=== PATIENT | male | born 1975 | race Caucasian/White ===

== ENCOUNTER 2024-01-28 08:09 | Outpatient (AMB) | payer BC, SELFPAY ==
--- NOTE | 2024-01-28 08:12 | A.OFFVIS_ITS ---
Vital Signs 01/28/24 08:20 Height 5 ft 9 in Weight 201 lb 8.04 oz BMI 29.8 BP 140/100 H Blood Pressure Location Lt brachial Position Sitting Pulse 67 Pulse Source Pulse Oximeter Pulse Oximetry (%) 96 Oxygen Delivery Method Room Air Intake Visit Reasons: PSA/ATC MED REC RECIEVED Intake Note: Patient presents for PSA. Left hand trigger finger is about the same it always been. Lower back and neck pain. Allergies Chocolate Allergy (Mild, Verified 01/28/24 08:15) Unknown Shellfish Allergy (Mild, Uncoded 01/21/24 15:13) Unknown Medication List - Last Reconciled 01/28/24 by Vijay To MD adalimumab (Humira(CF) Pen) 40 mg (0.4 mL) subcut Q2W ascorbic acid (vitamin C) 1 g PO Q6H naproxen sodium (Aleve) 220 mg PO BID PRN sildenafil 50 mg PO DAILY PRN HPI HPI PSA/ATC MED REC RECIEVED: Details: He has had some breaththrough PsO lesions coin size. Drinks 3 beers on Saturday. Left 3rd trigger finger is still active. Wore splint for a month. Recently had neck pain for 3 weeks where he could not rotate his neck. Pain has subsided over time. He has chronic lower back pain that he has been ex periencing for a year. Back pain does not affect his function. He continues to workout. [facility] Surgical History (Updated 01/28/24 @ 08:19 by VINAYAK Zelaya) History of knee surgery Family History (Updated 01/28/24 @ 08:19 by VINAYAK Zelaya) Father A-fib Social History (Updated 01/28/24 @ 08:20 by VINAYAK Zelaya) Household Members: None Housing: House Alcohol intake: current Comment: OCC Patient Tobacco Use Status: Never used Tobacco Review of Systems Const All systems reviewed & are unremarkable except as noted in HPI and below Physical Exam Vital Signs: Last Vital Signs Pulse 67 01/28/24 08:20 BP 140/100 H 01/28/24 08:20 Pulse Ox 96 01/28/24 08:20 Oxygen Delivery Method Room Air 01/28/24 08:20 BMI result Body Mass Index 29.8 Const Other: General: Comfortable CVS: RRR Respiratory: clear to auscultation bilaterally. Good respiratory effort Skin: No lesions seen MSK: Tender MCPs in right hand. No tenderness of any other joint. He has good range of motion of upper extremity lower extremity. He has tenderness of lower lumbar spinous process and paraspinal muscles. Good range of motion of cervical spine and good lumbar flexion. Assessment & Plan Assessment & Plan (1) Psoriatic arthritis: Comment: Psoriatic arthritis is controlled on Humira. Recently had breakthrough psoriasis. He has intermittent shoulder pain, which I suspect is from chronic rotator cuff tendinopathy. 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 We will obtain L-spine x-ray for further evaluation. Code(s): M54.50 - Low back pain, unspecified Category: Medical Qualifiers: Chronicity: chronic Back pain laterality: midline Sciatica presence: without sciatica Qualified Code(s): M54.50 - Low back pain, unspecified; G89.29 - Other chronic pain Plan: L-spine x-ray ordered I have asked him to start a stretching routine along with his workouts Can consider PT evaluation if needed in the future Return to clinic in 3 months (4) Neck pain: Comment: Acute onset neck pain with limited mobility for 3 weeks, resolved. Unclear etiology. We will obtain C-spine x-ray to evaluate for joint pathology including axial inflammatory arthritis. Code(s): M54.2 - Cervicalgia Category: Medical Plan: C-spine x-ray ordered Orders: Orders Alanine Aminotransferase 2 Months L40.50 - Arthropathic psoriasis, unspecified, Z79.899 - Other long-term (current) drug therapy Aspartate Amino Transferase 2 Months L40.50 - Arthropathic psoriasis, unspecified, Z79.899 - Other long-term (current) drug therapy Erythrocyte Sedimentation Rate 2 Months L40.50 - Arthropathic psoriasis, unspecified, Z79.899 - Other long-term (current) drug therapy Creatinine 2 Months L40.50 - Arthropathic psoriasis, unspecified, Z79.899 - Other termite exterminator helper (current) drug therapy Hepatitis B,C Profile 2 Months L40.50 - Arthropathic psoriasis, unspecified, Z79.899 - Other termite exterminator helper (current) drug therapy XR cervical spine 3V Today M54.2 - Cervicalgia, M54.50 - Low back pain, unspecified C Reactive Protein 2 Months L40.50 - Arthropathic psoriasis, unspecified, Z79.899 - Other termite exterminator helper (current) drug therapy Complete Blood Count Auto Diff 2 Months L40.50 - Arthropathic psoriasis, unspecified, Z79.899 - Other termite exterminator helper (current) drug therapy T Spot TB 2 Months L40.50 - Arthropathic psoriasis, unspecified, Z79.899 - Other termite exterminator helper (current) drug therapy XR lumbar spine 2-3V Today M54.50 - Low back pain, unspecified Medications: New adalimumab (Humira(CF) Pen) Inject SC every other week PA needed. Continuity of treatment. 40 mg (0.4 mL) subcut Q2W 2 ea 2RF Coding Level of Care Code Est Pt Level 5 (44644) Complex EM visit Add On G2211 Diagnoses Psoriatic arthritis L40.50 Other long-term (current) drug therapy Z79.899 Chronic midline low back pain without sciatica M54.50; G89.29 Chronicity: chronic Back pain laterality: midline Sciatica presence: without sciatica Neck pain M54.2
[2024-01-28 08:20] VITALS: BP 140/100; PULSE 67; O2SAT 96; BMI 29.8
== END 2024-01-28 08:50 | disposition home or self-care (01) ==
PROVIDERS: PCP Internal Medicine; Visit Provider Internal Medicine Rheumatology
DX: L40.50 Arthropathic psoriasis, unspecified (principal); Z79.899 Other long term (current) drug therapy; M54.50 Low back pain, unspecified; G89.29 Other chronic pain; M54.2 Cervicalgia
CPT/HCPCS: 99214

== ENCOUNTER 2024-01-28 08:09 | Outpatient (REF) | payer BC, SELFPAY | END 2024-01-28 08:10 | disposition home or self-care (01) | LOC: HO.XRAY 08:09 | PROVIDERS: PCP Internal Medicine; Visit Provider Internal Medicine Rheumatology | DX: M54.50 Low back pain, unspecified (principal); M54.2 Cervicalgia | CPT/HCPCS: 72040; 72100 ==

== ENCOUNTER 2024-03-31 09:10 | Outpatient (REF) | payer BC, SELFPAY ==
[2024-03-31 11:17] LABS: MANUAL DIFF FLAG NO
[2024-03-31 11:25] LABS: Basophils Percent Auto 0.4 % (0-2); Eosinophils Absolute Auto 0.2 X10*3/uL (0.0-0.4); Eosinophils Percent Auto 2.7 % (0-4); Hematocrit 44.9 % (42.0-52.0); Hemoglobin 15.4 g/dl (14.0-18.0); Imm Gran Abs Auto 0.03 X10*3/uL (0.00-0.03); Imm Gran Pct Auto 0.4 % (0.0-0.4); Lymphocytes Absolute Auto 2.2 X10*3/uL (1.2-4.9); Lymphocytes Percent Auto 29.6 % (20-40); Mean Corpuscular HGB Conc 34.3 g/dl (31.0-36.0); Mean Corpuscular Hemoglobin 31.6 pg (27.0-33.0); Mean Platelet Volume 11.2 fL (9.4-12.4); Monocytes Absolute Auto 0.7 X10*3/uL (0.1-1.2); Monocytes Percent Auto 8.9 % (2-11); Neutrophils Absolute Auto 4.4 x10*3/uL (2.0-8.3); Platelet Count 357 X10*3/uL (160-400); Red Blood Count 4.88 X10*6/uL (4.60-5.80); White Blood Count 7.5 X10*3/uL (4.8-10.8)
[2024-03-31 11:48] LABS: Erythrocyte Sedimentation Rate 2 MM/HR (0-15)
[2024-03-31 12:04] LABS: Alanine Aminotransferase 28 U/L (0-40); Aspartate Amino Transferase 21 U/L (5-37); Estimated Glomerular Filt Rate > 60
[2024-03-31 12:27] LABS: HBS Num1 195.51 mIU/mL (0-7.99); HBc Num1 0.12 S/CO (0.00-0.79); HBsAGNum1 0.37 S/CO (0.00-0.99); Hepatitis B Core Antibody Nonreactive (Nonreactive); Hepatitis B Surface Antigen Negative (Negative); ~HepC Num1 0.11 S/CO (0.00-0.79); ~Hepatitis B Surface Antibody REACTIVE (Nonreactive); ~Hepatitis C Antibody Nonreactive (Nonreactive)
[2024-04-03 05:18] LABS: TS Negative Control Passed; TS Panel A 1; TS Panel B 0; TS Positive Control Passed; TSpotTB Negative (Negative)
== END 2024-03-31 09:11 | disposition home or self-care (01) ==
LOC: HO.WFDLDS 09:10
PROVIDERS: Visit Provider Internal Medicine Rheumatology
DX: L40.50 Arthropathic psoriasis, unspecified (principal); Z79.899 Other long term (current) drug therapy
CPT/HCPCS: 36415; 82565; 84450; 84460; 85025; 85652; 86140; 86481; 86704; 86706; 86803; 87340

== ENCOUNTER 2024-04-28 09:43 | Outpatient (AMB) | payer BC, SELFPAY ==
[2024-04-28 09:45] VITALS: BP 140/100; PULSE 79; O2SAT 97; BMI 29.4
--- NOTE | 2024-04-28 09:45 | MHC.OFFVIS ---
Vital Signs 04/28/24 09:45 Height 5 ft 9 in Weight 199 lb 1.239 oz BMI 29.4 BP 140/100 H Blood Pressure Location Lt brachial Position Sitting Pulse 79 Pulse Oximetry (%) 97 Oxygen Delivery Method Room Air Intake Visit Reasons: Follow Up 3mo Professional Benefits Sales Consultant Required: No Accompanied by: Self / Same As Patient Allergies Chocolate Allergy (Mild, Verified 04/28/24 09:45) Unknown Shellfish Allergy (Mild, Uncoded 01/21/24 15:13) Unknown HPI HPI Follow Up 3mo: Details: PsO, nail PsO and PsA is controlled on humira. No recent infections. He had an episode of diverticulitis the day after he took Humira. It resolved in a week. He continues to have intermittent back pain. No recent triggers. He tolerates the pain. He has not been exercising. Previously he used to go to the gym. [facility] Surgical History History of knee surgery Family History Father A-fib Social History Household Members: None Housing: House Alcohol intake: current Comment: OCC Patient Tobacco Use Status: Never used Tobacco Review of Systems Const All systems reviewed & are unremarkable except as noted in HPI and below Physical Exam Vital Signs: Last Vital Signs Pulse 79 04/28/24 09:45 BP 140/100 H 04/28/24 09:45 Pulse Ox 97 04/28/24 09:45 Oxygen Delivery Method Room Air 04/28/24 09:45 BMI result Body Mass Index 29.4 Const Other: General: Comfortable CVS: RRR Respiratory: clear to auscultation bilaterally. Good respiratory effort Skin: No lesions seen MSK: Tender MCPs in right hand. No tenderness of any other joint. He has good range of motion of upper extremity lower extremity. Assessment & Plan Assessment & Plan (1) Psoriatic arthritis: Comment: Psoriatic arthritis and psoriasis is controlled on Humira. He has new hyperpigmented lesions on his legs of unclear etiology Code(s): L40.50 - Arthropathic psoriasis, unspecified Category: Medical Plan: Continue Humira every other week Labs for drug monitoring on high-risk medication up-to-date 03/2024 Dermatology follow-up for new leg lesions Return to clinic in 3 months (2) Lumbar spondylosis: Comment: Intermittent pain in lower back. We discussed x-ray results. 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 We discussed x-ray results in detail. He agreed to PT. Code(s): M47.812 - Spondylosis without myelopathy or radiculopathy, cervical region Category: Medical Plan: PT ordered Orders: Orders PT Evaluation and Treatment Today M47.812 - Spondylosis without myelopathy or radiculopathy, cervical region, M47.816 - Spondylosis without myelopathy or radiculopathy, lumbar region Medications: Refilled adalimumab (Humira(CF) Pen) Inject once every 14 days subcutaneous. Citrate free pen. 40 mg (0.4 mL) subcut Q14D 2 ea 2RF Coding Level of Care Code Est Pt Level 4 (43750) Complex EM visit Add On G2211 Diagnoses Psoriatic arthritis L40.50 Lumbar spondylosis M47.816 Other leather flesher (current) drug therapy Z79.899 Cervical spondylosis M47.812
== END 2024-04-28 10:18 | disposition home or self-care (01) ==
PROVIDERS: PCP Internal Medicine; Visit Provider Internal Medicine Rheumatology
DX: L40.50 Arthropathic psoriasis, unspecified (principal); M47.816 Spondylosis without myelopathy or radiculopathy, lumbar region; Z79.899 Other long term (current) drug therapy; M47.812 Spondylosis without myelopathy or radiculopathy, cervical region
CPT/HCPCS: 99214

== ENCOUNTER 2024-07-30 09:35 | Outpatient (AMB) | payer BC, SELFPAY ==
--- NOTE | 2024-07-30 09:36 | A.OFFVIS_ITS ---
Vital Signs 07/30/24 09:37 Height 5 ft 9 in Weight 205 lb 7.533 oz BMI 30.3 BP 130/90 H Blood Pressure Location Lt brachial Position Sitting Pulse 82 Pulse Source Pulse Oximeter Pulse Oximetry (%) 95 Oxygen Delivery Method Room Air Intake Visit Reasons: 3 Months Intake Note: Patient presents for PSA. Accompanied by: Self / Same As Patient Allergies Chocolate Allergy (Mild, Verified 07/30/24 09:36) Unknown Shellfish Allergy (Mild, Uncoded 01/21/24 15:13) Unknown HPI HPI 3 Months: Details: He had a tick bite on easter and received 12 days doxycycline. No new joint pain or swelling. Feels tired. Rash is progressing. They started before Humira he has noticed since being on Humira they have increased in frequency. Denies pruritus. The lesions appear then turned into bruises. PFSH Surgical History History of knee surgery Family History Father A-fib Social History Household Members: None Housing: House Alcohol intake: current Comment: OCC Patient Tobacco Use Status: Never used Tobacco Physical Exam Vital Signs: Last Vital Signs Pulse 82 07/30/24 09:37 BP 130/90 H 07/30/24 09:37 Pulse Ox 95 07/30/24 09:37 Oxygen Delivery Method Room Air 07/30/24 09:37 BMI result Body Mass Index 30.3 Const Other: General: Comfortable CVS: RRR Respiratory: clear to auscultation bilaterally. Good respiratory effort Skin: He has flat clusters of purpuric lesions with neighboring hyperpigmentation/bruising bilateral shins MSK: No tenderness of any joint. No synovitis. No enthesitis or dactylitis. He has normal range of motion of upper extremity lower extremity. Assessment & Plan Assessment & Plan (1) Psoriatic arthritis: Comment: Psoriatic arthritis and psoriasis is controlled on Humira. He has progression of erythematous clustered lesions that turned into hyperpigmented lesions on bilateral shins of unclear etiology Code(s): L40.50 - Arthropathic psoriasis, unspecified Category: Medical Plan: Continue Humira every other week Labs for disease and drug monitoring on high-risk medication ordered Dermatology follow-up for evaluation and management of lower extremity lesion Return to clinic in 3 months (2) Fatigue: Comment: Chronic Code(s): R53.83 - Other fatigue Category: Medical Qualifiers: Fatigue type: unspecified Qualified Code(s): R53.83 - Other fatigue Plan: TSH ordered (3) Other chcf (current) drug therapy: Code(s): Z79.899 - Other superintendent container terminal (current) drug therapy Category: Medical Plan: See above Orders: Orders Erythrocyte Sedimentation Rate Today Z79.899 - Other superintendent container terminal (current) drug therapy Complete Blood Count Auto Diff Today Z79.60 - detention (current) use of unspecified immunomodulators and immunosuppressants, Z79.899 - Other superintendent container terminal (current) drug therapy C Reactive Protein Today Z79.899 - Other superintendent container terminal (current) drug therapy Alanine Aminotransferase Today Z79.60 - detention (current) use of unspecified immunomodulators and immunosuppressants, Z79.899 - Other chcf (current) drug therapy Aspartate Amino Transferase Today Z79.60 - terminal press operator (current) use of unspecified immunomodulators and immunosuppressants, Z79.899 - Other superintendent container terminal (current) drug therapy Creatinine Today Z79.60 - terminal press operator (current) use of unspecified immunomodulators and immunosuppressants, Z79.899 - Other chcf (current) drug therapy TSH reflex Free T4 Today R53.83 - Other fatigue Coding Level of Care Code Est Pt Level 4 (23498) Complex EM visit Add On G2211 Diagnoses Psoriatic arthritis L40.50 Fatigue, unspecified type R53. Fatigue type: unspecified Other chcf (current) drug therapy Z79.899
[2024-07-30 09:37] VITALS: BP 130/90; PULSE 82; O2SAT 95; BMI 30.3
== END 2024-07-30 10:19 | disposition home or self-care (01) ==
LOC: HO.RHES 09:35
PROVIDERS: PCP Internal Medicine; Visit Provider Internal Medicine Rheumatology
DX: L40.50 Arthropathic psoriasis, unspecified (principal); R53.83 Other fatigue; Z79.899 Other long term (current) drug therapy
CPT/HCPCS: 99214

== ENCOUNTER 2024-07-30 09:35 | Outpatient (REF) | payer BC, SELFPAY ==
[2024-07-30 11:00] LABS: MANUAL DIFF FLAG NO
[2024-07-30 11:27] LABS: Basophils Percent Auto 0.2 % (0-2); Eosinophils Absolute Auto 0.4 X10*3/uL (0.0-0.4); Eosinophils Percent Auto 4.9 % (0-4); Hematocrit 44.5 % (42.0-52.0); Imm Gran Abs Auto 0.06 X10*3/uL (0.00-0.03); Imm Gran Pct Auto 0.7 % (0.0-0.4); Lymphocytes Absolute Auto 1.9 X10*3/uL (1.2-4.9); Lymphocytes Percent Auto 21.3 % (20-40); Mean Corpuscular Hemoglobin 32.6 pg (27.0-33.0); Mean Corpuscular Volume 90.6 fL (80.0-98.0); Mean Platelet Volume 10.9 fL (9.4-12.4); Monocytes Absolute Auto 1.1 X10*3/uL (0.1-1.2); Monocytes Percent Auto 12.9 % (2-11); Neutrophils Absolute Auto 5.3 x10*3/uL (2.0-8.3); Platelet Count 275 X10*3/uL (160-400); Red Blood Count 4.91 X10*6/uL (4.60-5.80); Red Cell Distribution Width 12.4 % (11.0-16.0); White Blood Count 8.8 X10*3/uL (4.8-10.8)
[2024-07-30 12:05] LABS: Erythrocyte Sedimentation Rate 2 MM/HR (0-15)
[2024-07-30 12:15] LABS: Alanine Aminotransferase 48 U/L (0-40); Aspartate Amino Transferase 29 U/L (5-37); C Reactive Protein 0.61 mg/dL (< or = 0.50); Estimated Glomerular Filt Rate > 60
== END 2024-07-30 09:36 | disposition home or self-care (01) ==
LOC: HO.LAB 09:35
PROVIDERS: PCP Internal Medicine; Visit Provider Internal Medicine Rheumatology
DX: L40.50 Arthropathic psoriasis, unspecified (principal); R53.83 Other fatigue; Z79.899 Other long term (current) drug therapy; Z79.60 Long term (current) use of unspecified immunomodulators and immunosuppressants
CPT/HCPCS: 36415; 82565; 84443; 84450; 84460; 85025; 85652; 86140

== ENCOUNTER 2024-10-29 10:38 | Outpatient (AMB) | payer BC, SELFPAY ==
--- OUTSIDE RECORDS SUMMARY | 2016-04-24 01:00 | XMS_ITS | Encounter Summary ---
Author Organization [facility] Address [address] [place] [phone] Phone Care Team Providers Care Senior Animal Trainer Name Role Phone Unavailable Primary Care Provider Unavailabl e Encounter Details Date Type Department Care Team (Late st Contact Info) Description 04/24/2016 Hospital Encounter [facility] [address] [place] [address] Kaleigh Lemos PA [address] [place] [address] [email or web address] Social History Tobacco Use Types Packs/Day Years Used Date Smoking Tobacco: Never Education Answer Date Recorded Are you interested in more education? Not on diamond e 06/29/2022 Are you concerned about learning? Not on file 06/29/2022 No 06/29/2022 No 06/29/2022 Digital Access Answer Date Recorded No 07/30/2022 No 07/30/2022 No 07/30/2022 Reliable internet access at home? Not on file 07/30/2022 Device with a working camera? Not on file Sex and Gender Information Value Date Recorded Sex Assigned at Not on file Legal Sex Male 10:22 AM EDT Gender Identity Not on file Sexual Orientation Not on file documented as of this encounter Plan of Treatment Not on file documented as of this encounter Procedures Procedure Name Priority Date/Time Associated Diagnosis Comments XR UPPER EXTREMITY OUTSIDE (NO INTERPRETATION) Routine 04/24/2016 12:00 AM EST documented in this encounter Results * XR Upper Extremity Outside (No Interpretation) (04/24/2016 12:00 AM EST) Narrative [facility] [place] [facility] - 06/29/2016 10:59 AM EDT This study is for PACS storage only and not for interpretation. Kaleigh HOGUE IMG OUTSIDE IMAGING W/OUT INT ERPRETATION Final Result [facility] [place] [facility] documented in this encounter Visit Diagnoses Not on filedocumented in this encounter Additional Source Comments The information contained in this document represents components of the legal health record. It is not the complete legal health record.[facility]
--- OUTSIDE RECORDS SUMMARY | 2016-05-08 01:00 | XMS_ITS | Encounter Summary ---
Author Organization [facility] Address [address] [place] [address] Phone Care Team Providers Care Manager Intelligence Name Role Phone Unavailable Primary Care Provider Unavailabl e Reason for Visit * MRI/CAT Scan - Closed Specialty Diagnoses / Procedures Referred By Loreta t Referred To Contact Procedures MRI Outside Upper Extremity (No Interpretation) Kaleigh Lemos PA [address] [address] Phone: tel: fax: [email or web address] Referral ID Status Reason Start Date Expiration Date Visits Re quested Visits Authorized [id number] Closed 06/29/2016 06/29/2017 1 1 Encounter Details Date Type Department Care Team (Late st Contact Info) Description 05/08/2016 Hospital Encounter [facility] [address] [place] [address] Kaleigh Lemos PA [address] [address] [email or web address] Social History Tobacco Use Types Packs/Day Years [...] Procedure Name Priority Date/Time Associated Diagnosis Comments MRI UPPER EXTREMITY OUTSIDE (NO INTERPRETATION) Routine 05/08/2016 12:00 AM EST documented in this encounter Results * MRI Outside Upper Extremity (No Interpretation) (05/08/2016 12:00 AM EST) Narrative [facility] [place] [facility] [place] - 06/29/2016 11:05 AM EDT This study is for PACS storage only and not for interpretation. Kaleigh HOGUE IMG OUTSIDE IMAGING W/OUT INT ERPRETATION Final Result [facility] documented in this encounter Visit Diagnoses Not on filedocumented in this encounter Additional Source Comments The information contained in this document represents components of the legal health record. It is not the complete legal health record.[facility]
[2024-10-29 10:47] VITALS: BP 120/80; PULSE 77; O2SAT 97; BMI 30.5
--- NOTE | 2024-10-29 10:47 | A.OFFVIS_ITS ---
Vital Signs 10/29/24 10:47 Height 5 ft 9 in Weight 206 lb 5.643 oz BMI 30.5 BP 120/80 Blood Pressure Location Lt brachial Position Sitting Pulse 77 Pulse Source Pulse Oximeter Pulse Oximetry (%) 97 Oxygen Delivery Method Room Air Intake Visit Reasons: 3 months Intake Note: Patient presents for PSA. and to speak about humira. Accompanied by: Self / Same As Patient Allergies Chocolate Allergy (Mild, Verified 10/29/24 10:47) Unknown Shellfish Allergy (Mild, Uncoded 01/21/24 15:13) Unknown Medication List - Last Reconciled 10/29/24 by Vijay To MD adalimumab (Humira(CF) Pen) 40 mg (0.4 mL) subcut Q14D adalimumab-bwwd (Hadlima PushTouch) 40 mg (0.8 mL) subcut Q2W ascorbic acid (vitamin C) 1 g PO Q6H naproxen sodium (Aleve) 220 mg PO BID PRN sildenafil 50 mg PO DAILY PRN HPI HPI 3 months: Details: Back is stiffness throughout the day. He has been very physical with his work around his parent's home in his home. Rest of the joints feel good. No new joint pain and swelling. New psoriatic patch on knees. He had been taking humira every 3 weeks because he had to delay it due to URI. Then he was treated for tick bite with doxycycline 10 days. He also received an antibiotic to treat a cyst on his chin by Dermatology delaying Humira. Fatigue is persistent. He has mild YVONNE on sleep study years ago. He does not use YVONNE. [facility] Surgical History History of knee surgery Family History Father A-fib Social History Household Members: None Housing: House Alcohol intake: current Comment: [facility] Patient Tobacco Use Status: Never used Tobacco Physical Exam Vital Signs: Last Vital Signs Pulse 77 10/29/24 10:47 BP 120/80 10/29/24 10:47 Pulse Ox 97 10/29/24 10:47 Oxygen Delivery Method Room Air 10/29/24 10:47 BMI result Body Mass Index 30.5 Const Other: General: Comfortable CVS: RRR Respiratory: clear to auscultation bilaterally. Good respiratory effort Skin: Small psoriatic patches on both knees extensor surfaces MSK: No tenderness of any joint. No synovitis. No enthesitis or dactylitis. He has normal range of motion of upper extremity lower extremity. Assessment & Plan Assessment & Plan (1) Psoriatic arthritis: Comment: He was in remission on Humira for treatment of psoriatic arthritis and psoriasis. Last dose of Humira was on 10/05/2024. He has developed psoriatic patches on both of his knees. Insurance will not cover Humira but will cover its biosimilars. Patient does not want to risk adverse effect of trying a new medication, suffering due to side effect and uncontrolled disease with loss of function and disability. We discuss evidence supporting benefits for Humira bio similar is with same outcomes and safety data. We discuss next steps with trying a new TNF inhibitor. TNF inhibitor is indicated to continue to control psoriatic arthritis and psoriasis. Patient agrees with plan to try Enbrel. Code(s): L40.50 - Arthropathic psoriasis, unspecified Category: Medical Plan: Milad HOGUE. when approved he will need nurse teaching visit for 1st dose admin istration in office. One month after starting Enbrel he will need labs for drug monitoring with CBC, creatinine, AST, ALT, ESR, CRP Labs for disease and drug monitoring on high-risk medication ordered Return to clinic in 3 months (2) Other care home (current) drug therapy: Code(s): Z79.899 - Other medical terminologist (current) drug therapy Category: Medical Plan: See above Orders: Orders Creatinine Today Z79.899 - Other care home (current) drug therapy C Reactive Protein Today Z79.899 - Other care home (current) drug therapy Complete Blood Count Auto Diff Today Z79.899 - Other care home (current) drug therapy Alanine Aminotransferase Today Z79.899 - Other medical terminologist (current) drug therapy Aspartate Amino Transferase Today Z79.899 - Other medical terminologist (current) drug therapy Erythrocyte Sedimentation Rate Today Z79.899 - Other medical terminologist (current) drug therapy Medications: New etanercept (Enbrel SureClick) First dose administration in office with nursing visit. Labs do 4 weeks after 1st dose. 50 mg subcut QWEEK 4 mL 2RF Coding Level of Care Code Est Pt Level 4 (25972) Complex EM visit Add On G2211 Diagnoses Psoriatic arthritis L40.50 Other medical terminologist (current) drug therapy Z79.899
--- OUTSIDE RECORDS SUMMARY | 2024-10-29 12:03 | XMS_ITS | Encounter Summary ---
Author Organization [facility] Address [address] [place] [address] Phone Care Team Providers Care Accounts Receivable Collector Name Role Phone Edward Asif MD Primary Care Provider + Encounter Details Date Type Department Care Team (Late st Contact Info) Description 06/29/[address] [facility] [address] [place] [address] Social History Tobacco Use Types Packs/Day Years Used Date Smoking Tobacco: Never Assessed Sex and Gender Information Value Date Recorded Sex Assigned at Not on file Legal Sex Male 10:22 AM EDT Gender Identity Not on file Sexual Orientation Not on file documented as of this encounter Plan of Treatment Not on file documented as of this encounter Visit Diagnoses Not on filedocumented in this encounter Care Teams Accounts Receivable Collector Relationship Specialty Start Date End Date Edward Asif MD [address] [place] [phone] PCP - General Internal Medicine 06/21/16 documented as of this encounter Additional Source Comments The information contained in this document represents components of the legal health record. It is not the complete legal health record.[facility]
--- OUTSIDE RECORDS SUMMARY | 2024-10-29 12:03 | XMS_ITS | Encounter Summary ---
Author Organization [facility] Address [address] [place] [address] Phone Care Team Providers Care Premium Cancellation Clerk Name Role Phone Edward Asif MD Primary Care Provider + Encounter Details Date Type Department Care Team (Late st Contact Info) Description 06/29/[address] [facility] Imaging [address] [place] [address] Social History Tobacco Use Types Packs/Day Years Used Date Smoking Tobacco: Never Sex and Gender Information Value Date Recorded Sex Assigned at Not on file Legal Sex Male 10:22 AM EDT Gender Identity Not on file Sexual Orientation Not on file documented as of this encounter Plan of Treatment Not on file documented as of this encounter Visit Diagnoses Not on filedocumented in this encounter Care Teams Premium Cancellation Clerk Relationship Specialty Start Date End Date Edward Asif MD [address] [address] PCP - General Internal Medicine 06/21/16 documented as of this encounter Additional Source Comments The information contained in this document represents components of the legal health record. It is not the complete legal health record.[facility]
--- OUTSIDE RECORDS SUMMARY | 2024-10-29 12:03 | XMS_ITS | Clinical Summary ---
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 Name Role Phone Edward Asif MD Primary Care Provider + Allergies No known active allergies Medications No known medications Social History Tobacco Use Types Packs/Day Years [...] on file Sexual Orientation Not on file Last Filed Vital Signs Vital Sign Reading Time Taken Comments Blood Pressure - - Pulse - - Temperature - - Respiratory Rate - - Oxygen Saturation - - Inhaled Oxygen Concentration - - Weight 86.2 kg (190 lb) 06/29/2016 11:13 AM EDT Height 175.3 cm (5' 9 ) 06/29/2016 11:13 AM EDT Body Mass Index 28.06 06/29/2016 11:13 AM EDT Plan of Treatment Health Maintenance Due Date Last Done Comments Adult Td,Tdap Booster 1974 LIPID PANEL 1974 DEPRESSION SCREENING 1986 HEPATITIS C SCREENING 1992 HIV ONE-TIME SCREENING (18-6 5 YEARS) 1992 COLOGUARD 07/01/2019 COLONOSCOPY 07/01/2019 COLORECTAL CANCER SCREENING 07/01/2019 FIT TEST 07/01/2019 FOBT 07/01/2019 SIGMOIDOSCOPY 07/01/2019 VIRTUAL COLONOSCOPY 07/01/2019 COVID-19 VACCINE (1 - 2023-2 5 season) 2023 PNEUMOCOCCAL VACCINES (50+ y ears) (1 of 1 - PCV) 2024 ZOSTER VACCINES (1 of 2) 2024 SMOKING STATUS SCREENING (On ce After 26 Yrs) Completed 06/29/2016 HEPATITIS A VACCINES Aged Out No long er eligible based on patient's age to complete this topic HIB VACCINES Aged Out No longer eligi ble based on patient's age to complete this topic MENINGOCOCCAL VACCINES (ACWY) Aged Out No longer eligible based on patient's age to complete this topic MENINGOCOCCAL VACCINES (B) Aged Out N o longer eligible based on patient's age to complete this topic Medical Devices Not on file [facility] [place] [address] [place] [address] [place] [address] [place] [address] HMO POS [facility] HMO POS Member Subscriber Plan / Payer (Ef fective 2015-Present) Name:Kevin Schuster Relation to Subscriber:Self Name:Kevin Schuster Payer ID:[id number] (NAIC) Type:HMO Address: [address] [place] [address] [place] [address] [place] [address] [place] [address] [place] [address] HMO POS [facility] Care Teams Opera Singer Relationship Specialty Start Date End Date Edward Asif MD [address] [place] [id number] PCP - General Internal Medicine 06/21/16 Additional Source Comments The information contained in this document represents components of the legal health record. It is not the complete legal health record.[facility]
== END 2024-10-29 11:28 | disposition home or self-care (01) ==
LOC: HO.RHES 10:39
PROVIDERS: PCP Internal Medicine; Visit Provider Internal Medicine Rheumatology
DX: L40.50 Arthropathic psoriasis, unspecified (principal); Z79.899 Other long term (current) drug therapy
CPT/HCPCS: 99214

== ENCOUNTER 2024-10-29 10:38 | Outpatient (REF) | payer BC, SELFPAY ==
[2024-10-29 13:24] LABS: MANUAL DIFF FLAG NO
[2024-10-29 13:39] LABS: Hematocrit 43.1 % (42.0-52.0); Hemoglobin 15.1 g/dl (14.0-18.0); Imm Gran Abs Auto 0.06 X10*3/uL (0.00-0.03); Imm Gran Pct Auto 0.7 % (0.0-0.4); Lymphocytes Absolute Auto 2.1 X10*3/uL (1.2-4.9); Mean Corpuscular HGB Conc 35.0 g/dl (31.0-36.0); Mean Corpuscular Hemoglobin 31.9 pg (27.0-33.0); Mean Corpuscular Volume 90.9 fL (80.0-98.0); NRBC Abs Auto 0.000 X10*3/uL (0.0-0.012); NRBC Pct Auto 0.0 /100WBC (0.0-0.2); Platelet Count 282 X10*3/uL (160-400); Red Blood Count 4.74 X10*6/uL (4.60-5.80); White Blood Count 8.5 X10*3/uL (4.8-10.8)
[2024-10-29 17:50] LABS: Alanine Aminotransferase 39 U/L (0-40); Aspartate Amino Transferase 29 U/L (5-37); Estimated Glomerular Filt Rate > 60
== END 2024-10-29 10:39 | disposition home or self-care (01) ==
LOC: HO.HKASLDS 10:38
PROVIDERS: PCP Internal Medicine; Visit Provider Internal Medicine Rheumatology
DX: L40.50 Arthropathic psoriasis, unspecified (principal); R97.20 Elevated prostate specific antigen [PSA]; Z51.81 Encounter for therapeutic drug level monitoring; Z79.899 Other long term (current) drug therapy
CPT/HCPCS: 36415; 82565; 84450; 84460; 85025; 85652; 86140

== ENCOUNTER 2025-02-04 10:42 | Outpatient (AMB) | payer BC, SELFPAY ==
[2025-02-04 10:48] VITALS: BP 194/100; PULSE 86; O2SAT 97; BMI 31.6
--- NOTE | 2025-02-04 10:48 | A.OFFVIS_ITS ---
Vital Signs 02/04/25 10:48 Height 5 ft 9 in Weight 213 lb 13.574 oz BMI 31.6 BP 194/100 H Blood Pressure Location Lt brachial Position Sitting Pulse 86 Pulse Source Pulse Oximeter Pulse Oximetry (%) 97 Oxygen Delivery Method Room Air Comment B/p right brachial 140/88 Intake Visit Reasons: 3months Intake Note: Patient presents for PSA. Accompanied by: Self / Same As Patient Allergies Chocolate Allergy (Mild, Verified 02/04/25 10:49) Unknown Shellfish Allergy (Mild, Uncoded 01/21/24 15:13) Unknown HPI HPI 3months: Details: He denies morning stiffness or new joint pain. Psoriasis patches are coming back on his knees. No recent infections. PFSH Surgical History History of knee surgery Family History Father A-fib Social History Household Members: None Housing: House Alcohol intake: current Comment: OCC Patient Tobacco Use Status: Never used Tobacco Physical Exam Vital Signs: Last Vital Signs Pulse 86 02/04/25 10:48 BP 194/100 H 02/04/25 10:48 Pulse Ox 97 02/04/25 10:48 Oxygen Delivery Method Room Air 02/04/25 10:48 BMI result Body Mass Index 31.6 Const Other: General: Comfortable CVS: RRR Respiratory: clear to auscultation bilaterally. Good respiratory effort Skin: Small psoriatic patches on both knees extensor surfaces MSK: No tenderness of any joint. No synovitis. No enthesitis or dactylitis. He has normal range of motion of upper extremity lower extremity. Assessment & Plan Assessment & Plan (1) Psoriatic arthritis: Comment: Inflammatory arthritis is still controlled. Psoriatic arthritis is not controlled off of treatment. Otezla was approved. Otezla is indicated for treatment of psoriasis and psoriatic arthritis. Rheumatology history: He was in remission on Humira for treatment of psoriatic arthritis and psoriasis. Last dose of Humira was on 10/05/2024. Insurance stopped covering Humira but will cover biosimilars. Need to failed more than 1 alternative before Humira can be approved. Off of Humira he developed psoriatic patches on both of his knees. Ryanbrel 3rd and 4th dose 12/28/24 caused injection site reaction as discontinued. Code(s): L40.50 - Arthropathic psoriasis, unspecified Category: Medical Plan: He will start Otezla starter pack. After completing starter pack he will start maintenance Otezla 30 mg twice a day Baseline labs ordered He will obtain labs for drug monitoring on high-risk medication in 1 month Return to clinic in 3 months (2) Other longterm (current) drug therapy: Code(s): Z79.899 - Other longterm (current) drug therapy Category: Medical Plan: See above Orders: Orders Complete Blood Count Auto Diff 1 Month Z79.899 - Other terminal worker (current) drug therapy Alanine Aminotransferase 1 Month Z79.899 - Other terminal worker (current) drug therapy Aspartate Amino Transferase 1 Month Z79.899 - Other terminal worker (current) drug therapy Creatinine 1 Month Z79.899 - Other terminal worker (current) drug therapy C Reactive Protein 1 Month Z79.899 - Other terminal worker (current) drug therapy Erythrocyte Sedimentation Rate 1 Month Z79.899 - Other terminal worker (current) drug therapy Coding Level of Care Code Est Pt Level 4 (88533) Complex visit Add On G2211 Diagnoses Psoriatic arthritis L40.50 Other terminal worker (current) drug therapy Z79.899
== END 2025-02-04 11:25 | disposition home or self-care (01) ==
LOC: HO.RHES 10:42
PROVIDERS: PCP Internal Medicine; Visit Provider Internal Medicine Rheumatology
DX: L40.50 Arthropathic psoriasis, unspecified (principal); Z79.899 Other long term (current) drug therapy
CPT/HCPCS: 99214

== ENCOUNTER 2025-02-04 10:42 | Outpatient (REF) | payer BC, SELFPAY ==
[2025-02-04 17:45] LABS: MANUAL DIFF FLAG NO
[2025-02-04 18:02] LABS: Hematocrit 45.0 % (42.0-52.0); Hemoglobin 15.1 g/dl (14.0-18.0); Imm Gran Abs Auto 0.04 X10*3/uL (0.00-0.03); Imm Gran Pct Auto 0.5 % (0.0-0.4); Lymphocytes Absolute Auto 1.7 X10*3/uL (1.2-4.9); Mean Corpuscular HGB Conc 33.6 g/dl (31.0-36.0); Mean Corpuscular Hemoglobin 31.3 pg (27.0-33.0); Mean Corpuscular Volume 93.4 fL (80.0-98.0); NRBC Abs Auto 0.000 X10*3/uL (0.0-0.012); NRBC Pct Auto 0.0 /100WBC (0.0-0.2); Platelet Count 294 X10*3/uL (160-400); Red Blood Count 4.82 X10*6/uL (4.60-5.80); White Blood Count 7.4 X10*3/uL (4.8-10.8)
[2025-02-04 18:19] LABS: Alanine Aminotransferase 53 U/L (0-40); Aspartate Amino Transferase 31 U/L (5-37); Estimated Glomerular Filt Rate > 60
[2025-02-04 18:46] LABS: Erythrocyte Sedimentation Rate 2 MM/HR (0-15)
== END 2025-02-04 10:43 | disposition home or self-care (01) ==
LOC: HO.HKASLDS 10:42
PROVIDERS: PCP Internal Medicine; Visit Provider Internal Medicine Rheumatology
DX: L40.50 Arthropathic psoriasis, unspecified (principal); Z79.899 Other long term (current) drug therapy
CPT/HCPCS: 36415; 82565; 84450; 84460; 85025; 85652; 86140